=== PATIENT | male | born 1980 | race Caucasian/White ===

== ENCOUNTER → 2022-06-24 09:55 | Outpatient (CLI) | payer BC, SELFPAY ==
--- NOTE | ~2022-06-24 | XR_ITS ---
EXAMINATION: XR cervical spine min 6V DATE: 06/24/2022 10:10 INDICATION: Neck and bilateral arm pain. TECHNIQUE: 6 views of cervical spine including flexion and extension views were obtained. COMPARISON: None. FINDINGS: Bone alignment is normal. There is no abnormal motion with flexion or extension. Vertebral body heights and intervertebral disc heights are normal. At C5-C6, there is mildly decreased disc hei ght. At C5-C6, there is severe bilateral vertebral joint osteoarthritis. At C4-C5, there is mild left facet joint osteoarthritis. There is mild central canal stenosis at C5-C6. No prevertebral soft tiss ue swelling. IMPRESSION: 1. Mild degenerative disc disease at C5-C6. Reviewed, dictated and finalized at location A.
== END ==
PROVIDERS: PCP Family Medicine; Visit Provider Family Medicine
DX: M54.12 Radiculopathy, cervical region (principal); M50.322 Other cervical disc degeneration at C5-C6 level
CPT/HCPCS: 72052

== ENCOUNTER 2022-08-19 12:30 | Outpatient (RCR) | payer BC, SELFPAY ==
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
--- NOTE | 2022-08-05 09:24 | PCPTNOTE ---
Patient did not show up for scheduled appointment this date; called patient stated he forgot about his appointment. Reminded him for next week treatment Aug 12 @ 9am
--- NOTE | 2022-08-12 09:37 | PCPTNOTE ---
Patient did not show up for scheduled appointment this date. Called and had to leave a message.
--- NOTE | 2022-08-19 13:26 | PTOPPROG ---
Assessment and note entered by Carmel Escobedo, PT Evaluation Information Assessment Status Progress Diagnosis cervical radiculopathy Onset about one year Subjective Information Rasta reports: doing better this past week; have arms supported at the work desk; some days work 12 hour days, at computer; pain range of 2-7/10 in neck, intermittent 25% of day, radicular pain into R fingertip/L to mid humerus; pulling, always there, but not as bad as it was; usually can sleep through the night, but sometimes wake up stiff and have to get out of bed and go to the couch; pain increases at night; decrease pain with change position, heating pad, over the counter meds; also taking prescription med- not sure of name, but feel like it is not helping; Assessment PT Clinical Summary Rasta has received 2 PT sessions. He did not show for 2 appointments and apologized today- stated he forgot about them. Compared to the initial evaluation: pain rating is the same, with intermittent radicular pain into R and L UE's; slight increase in cervical rotation to L; Self assessment Oswestry improved from 14% to 12% limitation in activity level; He has more posture awareness and has changed his work station set up with more support to his arms. The goals were partially achieved. Rasta stated he wants to try and work on the exercises himself and call if needs more therapy. He will call if additional questions or additional treatment sessions are needed. Plan of Care Interventions Electrical Stimulation,Hot Pack/Cold Pack,Manual Therapy,Mechanical Traction,Neuro Re-education, Patient/Caregiver Education,Therapeutic Activities, Therapeutic Exercise,Ultrasound PT Services Indicated Yes Treatment Frequency and 0-2x/wk for 4 weeks, pt to call for appt if needed Duration These treatments will address the objective and functional deficits as defined above. The patient will be advanced safely and appropriately in order for the patient to progress towards his/her prior level of function. Additional exercises will be introduced and as well as a comprehensive home exercise program upon discharge, if needed, ?to ensure carryover of functional gains achieved in the clinic. This treatment plan has been reviewed and agreement upon by the patient.
--- NOTE | 2022-10-01 12:00 | PCPTNOTE ---
PHYSICAL THERAPY DISCHARGE 10-01-22 Attending Provider: Erin Uribe MD Patient:Rasta Sanchez Date of :1980 Mr. Sanchez has not returned for any further treatments since the reevaluation on 08/19/2022, therefore, he will be discharged at this time. Thank you for referring Rasta to [facility].
== END 2022-10-01 14:16 | disposition home or self-care (01) ==
LOC: ANHPT 12:30
PROVIDERS: PCP Family Medicine; Visit Provider Family Medicine
DX: M54.12 Radiculopathy, cervical region (principal)
CPT/HCPCS: 97110; 97161; 99199

== ENCOUNTER 2024-04-05 01:33 | Day surgery (SDC) | payer BC, SELFPAY ==
[2024-03-20 09:49] VITALS: BMI 27.1
[2024-04-05 09:21] VITALS: BP 127/91; PULSE 86; RESP 16; TEMP 36.3; O2SAT 100; BMI 25.7
[2024-04-05] MEDS: LACTATED RINGERS 1,000 ML 150 ML IV CONT (09:30)
--- NOTE | 2024-04-05 10:08 | WPDANESEPPF ---
Anes - Initial Pre Proc Eval Procedure: Operation Date: 04/05/24 10:30 Proposed Procedures p Screening Colonoscopy - Eduin Guzman MD Date/Time: 04/05/24 10:08 Surgeon: Eduin Guzman MD Pre Op Diagnosis: Neoplasm screening Patient Data Age: 43 Gender: M Height: 1.83 m Weight: 85.9 kg Last Vital Signs Temp 97.3 F L 04/05/24 09:21 Pulse 86 04/05/24 09:21 Resp 16 04/05/24 09:21 BP 127/91 H 04/05/24 09:21 Pulse Ox 100 04/05/24 09:21 O2 Del Method Room Air 04/05/24 09:21 Allergies Allergy/AdvReac Type Severity Reaction Status Date / Time No Known Allergies Allergy Verified 04/05/24 09:20 Home Medications Medication Instructions Recorded Confirmed Type No Home Medications 03/20/24 04/05/24 History Patient hx anesthesia problems: none Family hx anesthesia problems: none Results Review: All pre-operative results and documents have been reviewed as part of the pre-operative evaluation. [facility] Social History Social History Smoking status: Never smoker Second hand tobacco smoke exposure: No Alcohol intake: current Drinks per week: 6 Alcohol use details: BEERS Substance use: never Substance use type: does not use Lack of Transportation: No Lack of Food: Never True Current Housing: I Have Housing Concerned About Future Housing: No Difficulty Paying Gas/Electric Bills: No Difficulty Paying for Meds: No Currently Unemployed: No Education: Bachelor's Degree Difficulty w/ Childcare or Family Care: No Living arrangements: with family Spiritual care concerns: No Anes - Eval Final PreProcedure Day of Procedure 04/05/24 10:08 Patient weight: normal Heart: regular rate and rhythm Lungs: clear to auscultation Airway: Mallampati scale class 1 Neurological: alert and oriented Last oral intake: >/= 8 hours ASA classification: I Emergent: no Anesthetic plan: proceed Anesthesia type and monitoring: general GIVS and standard monitoring Results Review: All pre-operative results and documents have been reviewed as part of the pre-operative evaluation. Pt active, recently started structured exercise program, no cp or sob. Informed Consent: The patient's anesthetic plan and its attendant risks and benefits were discussed with the patient/family/POA. Questions were solicited and answers provided to the satisfaction of the patient/family/POA.
--- NOTE | 2024-04-05 10:26 | PM.HPGS ---
History of Present Illness History of Present Illness Consent: Risks, benefits, and alternatives have been discussed and questions answered. Patient agrees to proceed with procedure. Chief complaint: Neoplasm screening Narrative: Rasta Sanchez is a 43 year old male here for first screening colonoscopy Review of Systems Review of Systems: All systems reviewed & are unremarkable except as noted in HPI and below PMFSH Past Medical History Medical History (Updated 04/05/24 @ 10:26 by Eduin Guzman MD) Colon cancer screening Social History Social History Smoking status: Never smoker Second hand tobacco smoke exposure: No Alcohol intake: current Drinks per week: 6 Alcohol use details: BEERS Substance use: never Substance use type: does not use Lack of Transportation: No Lack of Food: Never True Current Housing: I Have Housing Concerned About Future Housing: No Difficulty Paying Gas/Electric Bills: No Difficulty Paying for Meds: No Currently Unemployed: No Education: Bachelor's Degree Difficulty w/ Childcare or Family Care: No Living arrangements: with family Spiritual care concerns: No Meds Home Medications and Allergies Home Medications Medication Instructions Recorded Confirmed Type No Home Medications 03/20/24 04/05/24 History Allergies Allergy/AdvReac Type Severity Reaction Status Date / Time No Known Allergies Allergy Verified 04/05/24 09:20 Vital Signs Vital Signs - 24 hr 04/05/24 09:21 Temperature 97.3 F L Pulse Rate 86 Respiratory Rate 16 Blood Pressure 127/91 H Pulse Oximetry 100 Oxygen Delivery Room Air Exam Const: General: comfortable and no acute distress HENMT: Face/Nose/Sinus: Normal nares present Eyes: General: appearance normal, both eyes and all related structures Neck: Neck: no JVD Resp: Auscultation: clear to auscultation bilaterally Cardio: Rate: regular rate Rhythm: regular rhythm GI: Inspection: non-distended GI Palp: Yes Soft to palpation Skin: General skin exam: normal color Neuro: General: gait normal Speech: normal speech Extrem: General: normal to inspection Psych: Mental Status: mental status grossly normal Assessment and Plan Assessment and plan (1) Colon cancer screening: Code(s): Z12.11 - Encounter for screening for malignant neoplasm of colon Status: Acute Assessment and Plan: colonoscopy
[2024-04-05 10:47] VITALS: BP 122/74; PULSE 75; RESP 26; O2SAT 100
[2024-04-05 10:57] VITALS: BP 132/90; PULSE 63; RESP 20; O2SAT 100
[2024-04-05 11:07] VITALS: BP 125/90; PULSE 65; RESP 15; O2SAT 100
== END 2024-04-05 11:11 | disposition home or self-care (01) ==
PROVIDERS: PCP Family Medicine; Visit Provider Internal Medicine Gastroenterology
PROC: 0DJD8ZZ Inspection of Lower Intestinal Tract, Via Natural or Artificial Opening Endoscopic (ICD-10-PCS; CPT 45378; principal; 2024-04-05 10:30)
DX: Z12.11 Encounter for screening for malignant neoplasm of colon (principal); K64.8 Other hemorrhoids
CPT/HCPCS: 45378; J2001; J2704; J7120